=== PATIENT | male | born 1945 | race Caucasian/White ===

== ENCOUNTER 2018-07-30 12:10 | Inpatient (IN) | payer BC, MEDICARE ==
[~2018-07-30] VITALS: Ht 177.8 cm; Wt 84.8 kg
[~2018-07-30 12:10] MED LIST: AMIO200T PO; ASPI-1159 PO; CHOL100046 PO; CLOP75TA33 PO; CYAN10009 PO; MAGN400C PO; NITR0.4T49 SL; ROSU10TA PO; [UNRECOGNIZED DRUG - CODE] PO
[2018-07-30 12:50] LABS: HEMATOCRIT. 45.2 % (42.0-52.0); HEMOGLOBIN. 15.5 g/dL (14.0-18.0); MEAN CORPUSCULAR HEMOGLOBIN 34.3 pg (28.0-32.0); MEAN PLATELET VOLUME 8.2 fl (7.4-10.4); PLATELET 181 x1000/uL (130-400); RED BLOOD CELL COUNT 4.52 mill/uL (4.7-6.1); RED CELL DISTRIBUTION WIDTH 14.6 % (11.6-14.6)
[2018-07-30 12:57] LABS: CHLORIDE 102 mEq/L (98-107)
[2018-07-30 13:01] LABS: ETHANOL BLOOD < 10 mg/dL
[2018-07-30 13:02] LABS: INR 1.1; PROTHROMBIN TIME 10.9 sec (9.6-11.0)
[2018-07-30 13:04] LABS: LDL CHOLESTEROL 66 mg/dL (5-100)
[2018-07-30 13:15] LABS: PLATELET ESTIMATE NORMAL
[2018-07-30] MEDS ORDERED: ASPIRIN 81MG TABLET PO ONE (13:15)
[2018-07-30 13:36] LABS: CLARITY URINE CLEAR (CLEAR); COLOR URINE YELLOW (YELLOW); KETONES URINE NEGATIVE (NEGATIVE); LEUKOCYTE ESTERASE URINE NEGATIVE (NEGATIVE); NITRITE URINE NEGATIVE (NEGATIVE); OCCULT BLOOD URINE NEGATIVE (NEGATIVE); PROTEIN URINE NEGATIVE (NEGATIVE); SPECIFIC GRAVITY URINE 1.008 (1.005-1.030); UROBILINOGEN URINE 0.2 E.U./dL (0.2-1.0)
[2018-07-30 13:45] LABS: *AMPHETAMINES SCREEN URINE NEGATIVE (NEGATIVE); CANNABINOID URINE SCREEN NEGATIVE (NEGATIVE); PHENCYCLIDINE URINE SCREEN NEGATIVE (NEGATIVE)
[2018-07-30 13:46] LABS: *BARBITURATES SCREEN URINE NEGATIVE (NEGATIVE); *BENZODIAZEPINES SCREEN URINE NEGATIVE (NEGATIVE); *COCAINE SCREEN URINE NEGATIVE (NEGATIVE); METHADONE URINE SCREEN NEGATIVE (NEGATIVE); OPIATES URINE SCREEN NEGATIVE (NEGATIVE)
[2018-07-30 15:00] VITALS: BP 121/59
[2018-07-30 16:00] VITALS: BP 121/59
[2018-07-30 18:02] VITALS: BP 154/78
[2018-07-30] MEDS: AMLODIPINE 2.5MG TABLET PO SCH ×2 (18:03→20:42)
[2018-07-30 20:00] VITALS: BP 112/57
[2018-07-30] MEDS: ATORVASTATIN CALCIUM 10MG TABLET PO SCH (20:41)
[2018-07-30 21:00] VITALS: BP 109/53
[2018-07-30 22:00] VITALS: BP 103/53
[2018-07-31] VITALS (11 sets, daily range): BP systolic 85–140; BP diastolic 46–96
[2018-07-31 06:29] LABS: HEMATOCRIT. 45.6 % (42.0-52.0); HEMOGLOBIN. 15.4 g/dL (14.0-18.0); MEAN CORPUSCULAR HEMOGLOBIN 33.9 pg (28.0-32.0); MEAN CORPUSCULAR VOLUME 100.2 fL (80.0-94.0); MEAN PLATELET VOLUME 9.1 fl (7.4-10.4); PLATELET 183 x1000/uL (130-400); RED BLOOD CELL COUNT 4.55 mill/uL (4.7-6.1); RED CELL DISTRIBUTION WIDTH 14.2 % (11.6-14.6)
[2018-07-31] MEDS ORDERED: AMIODARONE HCL 200 MG TABLET PO SCH (09:00)
[2018-07-31] MEDS: AMIODARONE HCL 200 MG TABLET PO SCH (10:00)
[2018-07-31] MEDS: ASPIRIN 325MG EC TABLET PO SCH (10:08)
[2018-07-31] MEDS: CLOPIDOGREL 75MG TABLET PO SCH (10:08)
[2018-07-31 10:37] LABS: PLATELET ESTIMATE NORMAL
[2018-07-31 11:06] LABS: T4 FREE 1.4 ng/dL (0.76-1.46)
[2018-07-31 11:21] LABS: FOLIC ACID (FOLATE) SERUM >20 ng/mL ng/mL (>5.38)
[2018-07-31 11:37] LABS: VITAMIN B12 SERUM > 2000.0 pg/mL (211-911)
[2018-07-31] MEDS: LEVOTHYROXINE SODIUM 25MCG TABLET PO SCH (13:18)
[2018-07-31] MEDS ORDERED: IOHEXOL-350 100 ML BOTTLE ONE (15:16)
[2018-07-31] MEDS: ATORVASTATIN CALCIUM 10MG TABLET PO SCH (20:08)
[2018-08-01] VITALS (7 sets, daily range): BP systolic 100–147; BP diastolic 48–78
[2018-08-01 05:57] LABS: BASOPHILS % 0.5 % (0.0-2.0); EOSINOPHILS % 1.7 % (0.0-5.0); HEMATOCRIT. 46.4 % (42.0-52.0); HEMOGLOBIN. 15.8 g/dL (14.0-18.0); LYMPHOCYTES % 18.5 % (20.0-50.0); MEAN CORPUSCULAR VOLUME 99.9 fL (80.0-94.0); MEAN PLATELET VOLUME 9.1 fl (7.4-10.4); MONOCYTES % 11.7 % (2.0-8.0); NEUTROPHILS % 67.6 % (40.0-76.0); PLATELET 194 x1000/uL (130-400); RED BLOOD CELL COUNT 4.65 mill/uL (4.7-6.1); RED CELL DISTRIBUTION WIDTH 14.2 % (11.6-14.6)
[2018-08-01] MEDS: ASPIRIN 325MG EC TABLET PO SCH (07:51)
[2018-08-01] MEDS: CLOPIDOGREL 75MG TABLET PO SCH (07:52)
[2018-08-01] MEDS: LEVOTHYROXINE SODIUM 25MCG TABLET PO SCH (07:52)
[2018-08-01] MEDS: AMIODARONE HCL 200 MG TABLET PO SCH (07:55)
[2018-08-01] MEDS ORDERED: AMLODIPINE 2.5MG TABLET PO SCH (09:00)
== END 2018-08-01 15:58 | disposition home or self-care (01) | DRG 66 ==
LOC: ER 12:10 → EDBEDREQ 13:44 → CANRESERV 13:56 → ENRESERV 13:56 → EDBEDREQ 14:31 → 5EST 14:36 → EDBEDREQTM 14:39 → EDBEDREQ 14:39 → 5EST 16:47
PROVIDERS: ADMIT Family Medicine Adult Medicine; ATTEND Family Medicine Adult Medicine
DX: I63.531 Cerebral infarction due to unspecified occlusion or stenosis of right posterior cerebral artery (principal); I10 Essential (primary) hypertension; H53.462 Homonymous bilateral field defects, left side; E78.5 Hyperlipidemia, unspecified; E03.9 Hypothyroidism, unspecified; E78.00 Pure hypercholesterolemia, unspecified; I35.0 Nonrheumatic aortic (valve) stenosis; I25.10 Atherosclerotic heart disease of native coronary artery without angina pectoris; I49.3 Ventricular premature depolarization; H53.2 Diplopia; H54.7 Unspecified visual loss; I25.2 Old myocardial infarction; I48.91 Unspecified atrial fibrillation; I65.29 Occlusion and stenosis of unspecified carotid artery; Z79.02 Long term (current) use of antithrombotics/antiplatelets; Z79.82 Long term (current) use of aspirin; Z79.899 Other long term (current) drug therapy; Z82.49 Family history of ischemic heart disease and other diseases of the circulatory system; Z86.73 Personal history of transient ischemic attack (TIA), and cerebral infarction without residual deficits; Z90.49 Acquired absence of other specified parts of digestive tract; Z95.5 Presence of coronary angioplasty implant and graft; Z87.891 Personal history of nicotine dependence; R26.9 Unspecified abnormalities of gait and mobility
CPT/HCPCS: 36415; 70496; 70498; 70551; 71045; 80048; 80061; 80305; 80320; 82607; 82746; 83036; 83721; 83735; 84439; 84443; 84481; 84484; 93005; 93306; 93880; 93970; 97162; 97165; 99291; Q9967; G0480

== ENCOUNTER 2019-07-30 09:00 | Inpatient (IN) | payer MEDICARE, OTHER ==
[~2019-07-30] VITALS: Ht 177.8 cm; Wt 80.7 kg
[~2019-07-30 09:00] MED LIST changes: -ASPI-1159 PO; +ASPI-1497 PO; +CRES10 PO; +CYAN-50 PO; -CYAN10009 PO; -ROSU10TA PO
[2019-07-30] MEDS ORDERED: MORPHINE SULFATE 4 MG/ML CPJ (NOT FOR IM USE) IV STA (09:35)
[2019-07-30 09:43] LABS: BASOPHILS % 0.6 % (0.0-2.0); EOSINOPHILS % 3.7 % (0.0-5.0); HEMATOCRIT. 44.4 % (42.0-52.0); HEMOGLOBIN. 15.4 g/dL (14.0-18.0); LYMPHOCYTES % 23.5 % (20.0-50.0); MEAN CORPUSCULAR HEMOGLOBIN 34.2 pg (28.0-32.0); MEAN CORPUSCULAR VOLUME 98.5 fL (80.0-94.0); MEAN PLATELET VOLUME 8.7 fl (7.4-10.4); MONOCYTES % 13.1 % (2.0-8.0); NEUTROPHILS % 59.1 % (40.0-76.0); PLATELET 188 x1000/uL (130-400); RED BLOOD CELL COUNT 4.51 mill/uL (4.7-6.1); RED CELL DISTRIBUTION WIDTH 14.5 % (11.6-14.6)
[2019-07-30 09:46] LABS: CHLORIDE 108 mEq/L (98-107)
[2019-07-30] MEDS ORDERED: CLONIDINE 0.1MG TABLET PO PRN (11:45)
[2019-07-30] MEDS ORDERED: ATORVASTATIN CALCIUM 40MG TABLET PO ONE (11:45)
[2019-07-30] MEDS ORDERED: HYDRALAZINE 20MG/ML VIAL IV PRN (11:45)
[2019-07-30] MEDS ORDERED: NITROGLYCERIN 0.4MG TABLET SL SL PRN (11:45)
[2019-07-30] MEDS ORDERED: ACETAMINOPHEN 325MG TABLET PO PRN (11:45)
[2019-07-30] MEDS ORDERED: ONDANSETRON HCL 4MG/2ML INJ IV PRN (11:45)
[2019-07-30] MEDS ORDERED: AMIODARONE HCL 150 MG in DEXT 5% WATER 100 ML IV NR (12:00)
[2019-07-30] MEDS ORDERED: AMIODARONE HCL 900 MG in DEXT 5% WATER 482 ML IV SCH ×2 (12:00→12:15)
[2019-07-30] MEDS ORDERED: AMIODARONE HCL 200 MG TABLET PO NR (12:15)
[2019-07-30] MEDS ORDERED: ENOXAPARIN 40MG/0.4ML SYR SUBCUT ONE (13:00)
[2019-07-30 14:03] VITALS: BP 114/69
[2019-07-30] MEDS ORDERED: AMIODARONE HCL 200 MG TABLET PO SCH ×2 (15:00→21:00)
[2019-07-30 15:48] VITALS: BP 114/69
[2019-07-30 18:00] VITALS: BP 144/57
[2019-07-30 20:00] VITALS: BP 119/69
[2019-07-30] MEDS: ATORVASTATIN CALCIUM 10MG TABLET PO SCH (20:49)
[2019-07-30] MEDS: AMIODARONE HCL 200 MG TABLET PO SCH (20:50)
[2019-07-30] MEDS ORDERED: HEPARIN 5000 UNITS/ML VIAL SUBCUT SCH (21:00)
[2019-07-30 22:08] VITALS: BP 103/62
[2019-07-31] VITALS (11 sets, daily range): BP systolic 91–127; BP diastolic 42–73
[2019-07-31 06:04] LABS: CHLORIDE 107 mEq/L (98-107)
[2019-07-31 06:16] LABS: HDL CHOLESTEROL 49 mg/dL (40-59)
[2019-07-31 06:19] LABS: LDL CHOLESTEROL 54 mg/dL (5-100)
[2019-07-31 06:22] LABS: T4 FREE 1.56 ng/dL (0.76-1.46)
[2019-07-31 06:45] LABS: BASOPHILS % 0.6 % (0.0-2.0); EOSINOPHILS % 4.6 % (0.0-5.0); HEMATOCRIT. 40.7 % (42.0-52.0); HEMOGLOBIN. 14.3 g/dL (14.0-18.0); LYMPHOCYTES % 31.3 % (20.0-50.0); MEAN CORPUSCULAR HEMOGLOBIN 34.6 pg (28.0-32.0); MEAN CORPUSCULAR VOLUME 98.6 fL (80.0-94.0); MEAN PLATELET VOLUME 8.9 fl (7.4-10.4); NEUTROPHILS % 51.5 % (40.0-76.0); PLATELET 174 x1000/uL (130-400); RED BLOOD CELL COUNT 4.13 mill/uL (4.7-6.1); RED CELL DISTRIBUTION WIDTH 13.9 % (11.6-14.6)
[2019-07-31] MEDS ORDERED: SODIUM CHLORIDE 0.45% 1,000 ML IV SCH (08:30)
[2019-07-31] MEDS: ASPIRIN 81MG EC TABLET PO SCH (08:39)
[2019-07-31] MEDS: AMIODARONE HCL 200 MG TABLET PO SCH ×2 (08:39→21:00)
[2019-07-31] MEDS: CLOPIDOGREL 75MG TABLET PO SCH (08:40)
[2019-07-31] MEDS ORDERED: FENTANYL CITRATE/PF 50MCG/ML 2ML VIAL ONE (08:56)
[2019-07-31] MEDS ORDERED: IODIXANOL 320MG/ML 100 ML BOTTLE IV ONE (08:56)
[2019-07-31] MEDS ORDERED: LIDOCAINE HCL 1% 20ML VIAL (Pyxis) INJ ONE (08:56)
[2019-07-31] MEDS ORDERED: MIDAZOLAM HCL 2 MG/2 ML VIAL ONE (08:56)
[2019-07-31] MEDS ORDERED: ATROPINE SULFATE 1MG/10ML SYR IV PRN (10:45)
[2019-07-31] MEDS ORDERED: ACETAMINOPHEN 325MG TABLET PO PRN (10:45)
[2019-07-31] MEDS ORDERED: ENALAPRIL 2.5MG TABLET PO NR (12:00)
[2019-07-31] MEDS: FUROSEMIDE 40MG TABLET PO SCH (12:54)
[2019-07-31] MEDS: MAGNESIUM OXIDE 400MG TABLET PO SCH (12:54)
[2019-07-31] MEDS: METHIMAZOLE 5MG TABLET PO SCH (13:35)
[2019-07-31] MEDS ORDERED: NITROGLYCERIN 50MCG/ML 10ML VIAL (CATH LAB) IV ONE (14:28)
[2019-07-31] MEDS ORDERED: HEPARIN SODIUM 1,000 UNIT/1ML VIAL IV ONE (14:28)
[2019-07-31] MEDS: ATORVASTATIN CALCIUM 10MG TABLET PO SCH (20:15)
[2019-07-31] MEDS: CARVEDILOL 3.125 MG TABLET PO SCH (21:00)
[2019-08-01] VITALS (7 sets, daily range): BP systolic 89–104; BP diastolic 34–67
[2019-08-01 06:07] LABS: BASOPHILS % 0.6 % (0.0-2.0); EOSINOPHILS % 1.5 % (0.0-5.0); HEMATOCRIT. 44.7 % (42.0-52.0); HEMOGLOBIN. 15.4 g/dL (14.0-18.0); LYMPHOCYTES % 20.1 % (20.0-50.0); MEAN CORPUSCULAR HEMOGLOBIN 33.8 pg (28.0-32.0); MEAN PLATELET VOLUME 8.8 fl (7.4-10.4); MONOCYTES % 11.6 % (2.0-8.0); NEUTROPHILS % 66.2 % (40.0-76.0); PLATELET 183 x1000/uL (130-400); RED BLOOD CELL COUNT 4.56 mill/uL (4.7-6.1); RED CELL DISTRIBUTION WIDTH 14.2 % (11.6-14.6)
[2019-08-01 06:38] LABS: CHLORIDE 104 mEq/L (98-107)
[2019-08-01] MEDS ORDERED: ENALAPRIL 2.5MG TABLET PO SCH (08:00)
[2019-08-01] MEDS ORDERED: POTASSIUM CHLORIDE 10MEQ TABLET SR PO SCH (09:00)
[2019-08-01] MEDS: CARVEDILOL 3.125 MG TABLET PO SCH (09:00)
[2019-08-01] MEDS: FUROSEMIDE 40MG TABLET PO SCH (09:00)
[2019-08-01] MEDS: ASPIRIN 81MG EC TABLET PO SCH (09:05)
[2019-08-01] MEDS: CLOPIDOGREL 75MG TABLET PO SCH (09:05)
[2019-08-01] MEDS: AMIODARONE HCL 200 MG TABLET PO SCH (09:05)
[2019-08-01] MEDS: MAGNESIUM OXIDE 400MG TABLET PO SCH (09:05)
[2019-08-01] MEDS: METHIMAZOLE 5MG TABLET PO SCH (09:05)
== END 2019-08-01 10:57 | disposition home or self-care (01) | DRG 280 ==
LOC: ER 09:00 → 3WST 10:41 → EDBEDREQTM 10:43 → EDBEDREQ 10:43 → ENRESERV 11:32 → CANRESERV 11:32 → EDBEDREQSVC 11:45 → ENRESERV 11:52
PROVIDERS: ADMIT Internal Medicine; ATTEND Internal Medicine
PROC: 4A023N8 Measurement of Cardiac Sampling and Pressure, Bilateral, Percutaneous Approach (ICD-10-PCS; principal; 2019-07-31)
PROC: B211YZZ Fluoroscopy of Multiple Coronary Arteries using Other Contrast (ICD-10-PCS; 2019-07-31)
PROC: B215YZZ Fluoroscopy of Left Heart using Other Contrast (ICD-10-PCS; 2019-07-31)
PROC: B218YZZ Fluoroscopy of Left Internal Mammary Bypass Graft using Other Contrast (ICD-10-PCS; 2019-07-31)
DX: I21.4 Non-ST elevation (NSTEMI) myocardial infarction (principal); I50.23 Acute on chronic systolic (congestive) heart failure; I47.1 Supraventricular tachycardia; I48.92 Unspecified atrial flutter; I25.110 Atherosclerotic heart disease of native coronary artery with unstable angina pectoris; E78.5 Hyperlipidemia, unspecified; I35.0 Nonrheumatic aortic (valve) stenosis; I25.5 Ischemic cardiomyopathy; I11.0 Hypertensive heart disease with heart failure; I48.0 Paroxysmal atrial fibrillation; E03.9 Hypothyroidism, unspecified; E78.00 Pure hypercholesterolemia, unspecified; Z79.82 Long term (current) use of aspirin; Z79.899 Other long term (current) drug therapy; Z90.49 Acquired absence of other specified parts of digestive tract; Z82.49 Family history of ischemic heart disease and other diseases of the circulatory system; Z82.3 Family history of stroke; Z87.891 Personal history of nicotine dependence; Z95.5 Presence of coronary angioplasty implant and graft
CPT/HCPCS: 36415; 71045; 80053; 80061; 83036; 83735; 83880; 84439; 84443; 84484; 85025; 93005; 93306; 93461; 99285; C1760; C1769; C1887; C1893; J0282; J1644; J1650; J2250; J2270; J3010; J3490; J7060; Q9967